=== PATIENT | female | born 1960 | race Caucasian/White ===

== ENCOUNTER 2023-04-13 12:45 | Outpatient (CLI) | payer OTHER ==
--- NOTE | 2023-04-13 16:58 | XRAY Report ---
PROCEDURE: Lumbar Spine 4V INDICATIONS: LOW BACK PAIN TECHNIQUE: 3 views of the lumbar spine were acquired. COMPARISON: None. FINDINGS: Bones: 5 [id number]-[id number] vertebrae are present. There is grade 1 anterolisthesis of L5 on S1. No v ertebral body compression fractures. No suspicious bony lesions. Multilevel degenerative disease thr oughout the lumbar spine, severe at L5-S1, moderate at L1-L2, and mild at other levels. Moderate face t arthropathy at L5 L5 and L5-S1. Soft tissues: Overlying bowel gas pattern is normal. Moderate aortic calcification consistent with a therosclerosis. IMPRESSION: 1. Moderate degenerative disc and facet disease. 2. Grade 1 anterolisthesis of L5 on S1. Reviewed by: Elizabeth Nguyen MD on 04/13/2023 4:56 PM PST Approved by: Elizabeth Nguyen MD on 04/13/2023 4:56 PM PST Station ID: [id number]
== END 2023-04-13 13:00 | disposition home or self-care (01) ==
LOC: DI.N 12:45
PROVIDERS: ATTEND Physician Assistant Medical
DX: M47.816 Spondylosis without myelopathy or radiculopathy, lumbar region (principal); M51.36 Other intervertebral disc degeneration, lumbar region; M43.17 Spondylolisthesis, lumbosacral region

== ENCOUNTER 2023-07-06 10:13 | Emergency (ER) | payer OTHER ==
[2023-07-06 10:28] VITALS: O2SAT 95
--- NOTE | 2023-07-06 10:55 | XRAY Report ---
PROCEDURE: Humerus RT INDICATIONS: Trauma TECHNIQUE: 2 views of the humerus were acquired. COMPARISON: None. FINDINGS: Bones: There is a mildly comminuted mildly displaced and mildly angulated fracture of the proximal s haft of the right humerus. Along the more proximal aspect of the shaft and at the fracture there are subtle lucencies. This potentially may represent a pathologic fracture. Soft tissues: No suspicious soft tissue calcifications or masses. IMPRESSION: No acute bony abnormality. Mildly comminuted proximal shaft fracture of the right humerus. Question possible pathologic fracture . Reviewed by: Jesse Rice MD on 07/06/2023 10:54 AM PDT Approved by: Jesse Rice MD on 07/06/2023 10:54 AM PDT Station ID: [id number]
[2023-07-06] MEDS: oxyCODONE 5 MG TABLET PO STA (11:24)
[2023-07-06] MEDS: HYDROmorphone 1 MG/ML CARPUJECT IM STA (11:48)
--- NOTE | 2023-07-06 12:42 | ED Physician Documentation ---
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 She reports pain to the mid upper arm. Did not hit her head. No LOC. No numbness or tingling. Review of Systems Musculoskeletal: reports: Extremity pain Neurologic: denies: Head injury PD PAST MEDICAL HISTORY - Past Medical History Past Medical History: Yes Cardiovascular: None Respiratory: None Neuro: None Endocrine/Autoimmune: None GI: None PAPERHANGER ASSISTANT: None : None HEENT: None Psych: None Musculoskeletal: Chronic back pain Derm: None - Past Surgical History Past Surgical History: Yes /PAPERHANGER ASSISTANT: Tubal ligation - Present Medications Home Medications: Ambulatory Orders Medication Instructions Recorded Confirmed Acetaminophen [Tylenol] 1,000 mg PO Q6HR PRN 07/06/23 07/06/23 Oxycodone HCl/Acetaminophen 1 each PO Q6H PRN #14 tablet 07/06/23 [Percocet 5-325 mg Tablet] - Allergies Allergies/Adverse Reactions: Allergies Allergy/AdvReac Type Severity Reaction Status Date / Time Sulfa (Sulfonamide Allergy Unknown Verified 07/06/23 10:16 Antibiotics) - Social History Does the pt smoke?: No Smoking Status: Never smoker Does the pt drink ETOH?: Yes Does the pt have substance abuse?: No - Immunizations Immunizations are current?: Yes PD ED PE NORMAL - General General: Alert and oriented X 3, No acute distress, Well developed/nourished - HEENT HEENT: Atraumatic - Neck Neck: No bony TTP - Cardiac Cardiac: Strong equal pulses - Respiratory Respiratory: No respiratory distress - Extremities Extremities: Other (Tenderness to right upper extremity, mid humerus, distal pulses intact, Motor and station station intact distally, no tenderness over forearm or hand) Results - Vitals Vitals: Vital Signs - 24 hr 07/06/23 07/06/23 10:16 13:14 Temperature 36.2 C L 36.5 C Heart Rate 56 L 77 Respiratory 18 18 Rate Blood Pressure 135/89 H 123/82 H O2 Saturation 95 95 Oxygen O2 Source Room air PD Medical Decision Making - ED course Complexity details: reviewed results, d/w patient ED course: Patient is a 62-year-old female with injury to right upper arm. X-ray was obtained which I reviewed and she has a midshaft humeral fracture. Neurovascularly intact. Placed into a Martinez brace with sling. Given IM Dilaudid as well as an oxycodone for pain. Patient aware of need for follow-up with orthopedic surgery. Denies injuries elsewhere. Departure - Departure Disposition: 01 Home, Self Care Clinical Impression: Right humeral fracture Condition: Stable Instructions: ED Fx Upper Ext Follow-Up: Bo Leiva MD [Provider Admit Priv/Credential] - Prescriptions: Oxycodone HCl/Acetaminophen [Percocet 5-325 mg Tablet] 1 each PO Q6H PRN #14 tab let PRN Reason: pain Comments: You have a fracture in your right arm and a bone called the humerus. We have placed you into a splint and you do need close follow-up with an orthopedic surgeon. I have listed the name of 1 locally [facility] [place] [facility]. I have sent a prescription for narcotic pain medication to [facility] in [place]. I am prescribing a short course of narcotic pain medication for you. These are potentially dangerous and addictive medications that should be used carefully. These medications may constipate you. Take an lrml-aqz-vhfioog stool softener (docusate) twice daily with plenty of water while taking these medications. If you go 24 hours without a bowel movement, take [id number]-[id number] miralax, per package instructions. Do not drink or drive while taking these medications. If you received narcotic or sedating medications while in the emergency department, do not drive for 24 hours. Store this medication in a safe, secure place and out of reach of children. It is a violation of federal law to give or sell this medication to another person or to use in a manner other than prescribed. The ED will not refill narcotic prescriptions, including prescriptions lost or stolen. To dispose of unwanted medications: 1. [facility] at [address] in [place] has a medication drop box. They accept prescription medications (in pill form) Wednesday through Wednesday 9:00 a.m. to 5:00 p.m. 2. The [facility] [employer] accepts prescription medications (in pill form only) for disposal year round. Call for more information. 3. Contact the [facility] for the next [facility] sponsored prescription drug collection event. , [phone], or [phone]; Note that many narcotic pain relievers also contain Tylenol/acetaminophen. Please ensure that your total dose of acetaminophen from all sources does not exceed 3 g (3000 mg) per day. Forms: PCP List Discharge Date/Time: 07/06/23 13:14
[2023-07-06 13:17] VITALS: BP 123/82
== END 2023-07-06 13:14 | disposition home or self-care (01) ==
LOC: ED 10:13
DX: S42.301A Unspecified fracture of shaft of humerus, right arm, initial encounter for closed fracture (principal); W08.XXXA Fall from other furniture, initial encounter; Y92.531 Health care provider office as the place of occurrence of the external cause
CPT/HCPCS: 73060; 96372; 99283; 99284; A9270; J1170

== ENCOUNTER 2023-07-12 15:46 | Outpatient (CLI) | payer OTHER ==
--- NOTE | 2023-07-12 16:17 | XRAY Report ---
PROCEDURE: Humerus RT INDICATIONS: RIGHT ARM PAIN TECHNIQUE: 2 views of the humerus were acquired. COMPARISON: X-ray humerus 07/06/2023 FINDINGS: Bones: Stable appearance and alignment of the mid humeral shaft fracture with mild displacement. No definitive bridging osteophyte formation. Soft tissues: No suspicious soft tissue calcifications or masses. IMPRESSION: Stable alignment of mid humeral diaphyseal fracture. Reviewed by: Lola Case MD on 07/12/2023 4:16 PM PDT Approved by: Lola Case MD on 07/12/2023 4:16 PM PDT Station ID: [id number]
== END 2023-07-12 15:47 | disposition home or self-care (01) ==
LOC: DI 15:46
PROVIDERS: ATTEND Orthopaedic Surgery
DX: S42.301A Unspecified fracture of shaft of humerus, right arm, initial encounter for closed fracture (principal)

== ENCOUNTER 2023-08-11 15:14 | Outpatient (CLI) | payer OTHER ==
--- NOTE | 2023-08-11 19:47 | XRAY Report ---
PROCEDURE: Humerus RT INDICATIONS: RIGHT HUMERUS FRACTURE TECHNIQUE: 2 views of the humerus were acquired. COMPARISON: 07/12/2023 and 07/06/2023. FINDINGS: Bones: Again noted is comminuted and slightly displaced fracture involving proximal to mid right hum eral shaft with overall alignment is not significantly changed from prior studies. Mottled appearance of the proximal to mid humeral shaft extending to the level of fracture site is again seen concernin g for intraosseous lesion and pathologic fracture. Mild callus formation surrounding fracture site is seen. Soft tissues: No suspicious soft tissue calcifications or masses. IMPRESSION: Healing comminuted and displaced proximal to mid humeral shaft fracture with stable humeral alignment . No new fracture or dislocation. Mottled appearance involving proximal to mid humeral shaft concerni ng for intraosseous lesion and a pathologic fracture. Reviewed by: Diego Lynch MD on 08/11/2023 7:46 PM PDT Approved by: Diego Lynch MD on 08/11/2023 7:46 PM PDT Station ID: [id number]
== END 2023-08-11 15:15 | disposition home or self-care (01) ==
LOC: DI 15:14
PROVIDERS: ATTEND Orthopaedic Surgery
DX: S42.351D Displaced comminuted fracture of shaft of humerus, right arm, subsequent encounter for fracture with routine healing (principal)